=== PATIENT | female | born 1970 | race Caucasian/White ===

== ENCOUNTER 2023-07-09 09:11 | Outpatient (AMB) | payer OTHER, SELFPAY ==
--- NOTE | 2023-07-09 09:13 | A.OFFVIS_ITS ---
Intake VS Expanded 07/09/23 09:16 07/17/23 14:22 Height 5 ft 7 in 5 ft 7 in Weight 247 lb 5.738 oz 247 lb BMI 38.7 38.7 Intake Visit Reasons: Obesity/ CONFIRMED HPI Nutrition Presentation Details Pt presents for MNT for obesity. The Pt was referred by Poly Balderas from [facility] Pt reports her lowest wt at 200 lbs after age 30 and highest weight at 240 lbs currently. 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 D: varies: prot/veg or starch/prot/veg, water Beverages, water ,tea 2 c/d , wine 6 oz at dinner , coffee (2-c/d fruits/day: 0-1 fish : once/wk dairy : 1-2 c/d green tea 2 times/d smoking stopped 2000 physical activity: non additional to daily life activities r/t knee surgery mvi - not taking TJS-Uujkswu-Cd.Jeor Equation Height 5 ft 7 in Weight 247 lb Resting Metabolic Rate 1766.04 Calculated Activity Level Sedentary Calories Needed to Maintain Weight 2119.25 Diagnosis Nutrition problem #1 food nutri know defi As related to (etiology) #1 diagnosis As evidenced by (sign/symptom) #1 high BMI (38.7 on 06/2023) Most Recent Diabetes Results: No Data to Display Assessment & Plan Assessment & Plan (1) Obesity (BMI 30-39.9): Code(s): E66.9 - Obesity, unspecified Plan: wt:112 kg Est kcal needs as per MSJ: 2100 (40% carb, 30% protein/fat) Est fluid needs as per 25-30 ml/d: 2800- 3360 Est prot per day as per 1 g/kg bw: 112 Recommend fiber intake : 8-10 g per day and gradually increase to 25-28 g per day for women and 35-38 g for men or as tolerated Recommend sodium intake per day : less than 2000 mg Educated patient on: ( R = reviewed V = verbalizes understanding N/R = needs review N/A = not applicable * Food sources of carbohydrate, adequate serving sizes and its role in various health conditions: R * Differences between complex carbohydrates a simple carbohydrates, role of fiber in diet: R * Differences between types of fats and role in diet (mono on saturated fat fatty acids, saturated fatty acids, trans fats): R V R/V * Food sources of sodium in salt and healthy modifications for heart health in kidney health: R V R/V * Vitamins and minerals: R V R/V * Healthy plate method concept: R * Physical activity: Benefits a precaution: R V R/V * Mindful eating : R Patient Instructions: Work on reducing portion sizes reduce your carbohydrates to 60 g at a meal fol lowing healthy plate method Choose 1-2 snacks consisting of 0-20 g carbs Keep hydrated choosing low adrianne/low sugar beverages Coding Level of Care Code Nutr Indiv Intake (27366) Diagnoses Obesity (BMI 30-39.9) E66.9 Time Spent (min) 30
[2023-07-09 09:16] VITALS: BMI 38.7
[2023-07-17 14:22] VITALS: BMI 38.7
== END 2023-07-09 09:51 | disposition home or self-care (01) ==
PROVIDERS: PCP Family Medicine; Visit Provider Dietitian, Registered
DX: E66.9 Obesity, unspecified (principal)

== ENCOUNTER → 2023-07-09 09:11 | Outpatient (BNVA) | payer OTHER, SELFPAY | PROVIDERS: PCP Family Medicine; Visit Provider Dietitian, Registered | DX: E66.9 Obesity, unspecified (principal); Z68.38 Body mass index [BMI] 38.0-38.9, adult; Z71.3 Dietary counseling and surveillance | CPT/HCPCS: 97802 ==